=== PATIENT | male | born 1955 | race Hispanic/Latino ===

== ENCOUNTER 2019-03-07 14:39 | Inpatient (IN) | payer MEDICARE ==
[~2019-03-07] VITALS: Ht 165.1 cm; Wt 69.5 kg
[2019-03-07] MEDS ORDERED: ZIPRASIDONE MESYLATE 20 MG/VIAL IM ONE (14:40)
[2019-03-07 15:22] LABS: APPEARANCE,URINE Clear (CLEAR); BILIRUBIN,URINE Negative (NEGATIVE); COLOR,URINE Yellow (YELLOW); GLUCOSE, URINE (UA) Negative (NEGATIVE); KETONES,URINE Negative (NEGATIVE); LEUKOCYTE ESTERASE ,URINE Negative (NEGATIVE); NITRATE,URINE Negative (NEGATIVE); OCCULT BLOOD,URINE Moderate (NEGATIVE); PROTEIN,URINE Trace mg/dL (NEGATIVE); UROBILINOGEN,URINE 0.2 mg/dL (0.2-1.0)
[2019-03-07] MEDS ORDERED: HALOPERIDOL LACTATE 5 MG/ML VIAL ONE (15:25)
[2019-03-07 15:26] LABS: BASOPHILS % (AUTO) 0.6 % (0.0-5.0); EOSINOPHILS % (AUTO) 0.2 % (0.0-8.0); HEMATOCRIT 46.5 % (42-54); LYMPHOCYTES % (AUTO) 15.7 % (21.0-51.0); MEAN CORPUSCULAR HEMOGLOBIN 32.6 pg (27.0-33.0); MEAN CORPUSCULAR HGB CONC 34.8 g/dL (32.0-36.0); MEAN CORPUSCULAR VOLUME 93.6 fL (79-99); NEUTROPHILS % (AUTO) 76.5 % (40.0-77.0); PLATELET COUNT (AUTO) 218 K/uL (130-400); RED BLOOD CELL COUNT(AUTO) 4.96 MIL/uL (4.50-6.20); RED CELL DISTRIBUTION WIDTH 13.5 % (11.0-15.5); WHITE BLOOD COUNT (AUTO) 12.8 K/uL (4.8-10.8)
[2019-03-07] MEDS ORDERED: SODIUM CHLORIDE 0.9% 1000ML 2,000 ML IV ONE (15:26)
[2019-03-07] MEDS ORDERED: LORAZEPAM 2 MG/ML 1 ML VIAL ONE ×2 (15:26→21:21)
[2019-03-07 15:29] LABS: AMPHET/METH SCREEN,URINE NEGATIVE (NEGATIVE); BARBITURATE SCREEN, URINE NEGATIVE (NEGATIVE); BENZODIAZEPINES SCREEN,URINE NEGATIVE (NEGATIVE); CANNABINOID SCREEN,URINE NEGATIVE (NEGATIVE); COCAINE SCREEN,URINE NEGATIVE (NEGATIVE); OPIATE SCREEN,URINE NEGATIVE (NEGATIVE); PHENCYCLIDINE SCREEN,URINE NEGATIVE (NEGATIVE)
[2019-03-07 15:37] LABS: POTASSIUM 4.6 mmol/L (3.5-5.1)
[2019-03-07 15:42] LABS: ALBUMIN 4.1 g/dL (3.5-5.0); BILIRUBIN,TOTAL 0.6 mg/dL (0.2-1.0); TOTAL PROTEIN, SERUM 7.4 g/dL (6.0-8.3)
[2019-03-07 16:14] LABS: BACTERIA,URINE Rare /HPF (None Seen); WBC,URINE 0-1 /HPF (0-1)
[2019-03-07 16:15] LABS: SQUAMOUS EPITHELIAL CELL,UR None Seen /HPF (0-2)
[2019-03-07] MEDS: SODIUM CHLORIDE 0.9% 1000ML 1,000 ML IV SCH (19:10)
[2019-03-07] MEDS ORDERED: PROMETHAZINE HCL 25 MG TABLET PO PRN (19:15)
[2019-03-07] MEDS ORDERED: CHLORDIAZEPOXIDE HCL 25 MG CAP PO PRN ×2 (19:15)
[2019-03-07] MEDS ORDERED: LORAZEPAM 2 MG/ML 1 ML VIAL IVP PRN ×2 (19:15)
[2019-03-07] MEDS: CEFTRIAXONE SODIUM 1 GM IV SCH (19:15)
[2019-03-07] MEDS ORDERED: PHARMACY COMMUNICATION MISC PRN (19:15)
[2019-03-07] MEDS ORDERED: HYDRALAZINE HCL 20 MG/ML VIAL IV PRN (19:15)
[2019-03-07] MEDS ORDERED: THIAMINE HCL 100 MG, FOLIC ACID 1 MG, M.V.I. IV [ADULT] 10 ML in SODIUM CHLORIDE 0.9% 1... IV SCH (19:15)
[2019-03-07 20:06] LABS: MAGNESIUM 2.1 mg/dL (1.80-2.40)
[2019-03-07] MEDS ORDERED: FAMOTIDINE/PF 20 MG/2 ML VIAL IV SCH ×2 (21:00)
[2019-03-07] MEDS ORDERED: CEFTRIAXONE SODIUM 1 GM ONE (21:21)
[2019-03-08] MEDS ORDERED: SODIUM CHLORIDE 0.9% 1000ML 1,000 ML IV ONE ×2 (02:49→09:18)
[2019-03-08] MEDS ORDERED: LORAZEPAM 2 MG/ML 1 ML VIAL ONE (04:13)
[2019-03-08] MEDS: SODIUM CHLORIDE 0.9% 1000ML 1,000 ML IV SCH ×2 (05:10→16:28)
[2019-03-08 06:09] LABS: BASOPHILS % (AUTO) 0.7 % (0.0-5.0); EOSINOPHILS % (AUTO) 1.2 % (0.0-8.0); HEMATOCRIT 44.2 % (42-54); LYMPHOCYTES % (AUTO) 13.6 % (21.0-51.0); MEAN CORPUSCULAR HEMOGLOBIN 32.4 pg (27.0-33.0); MEAN CORPUSCULAR HGB CONC 34.6 g/dL (32.0-36.0); MEAN CORPUSCULAR VOLUME 93.6 fL (79-99); MONOCYTES % (AUTO) 6.5 % (3.0-13.0); PLATELET COUNT (AUTO) 187 K/uL (130-400); RED BLOOD CELL COUNT(AUTO) 4.71 MIL/uL (4.50-6.20); RED CELL DISTRIBUTION WIDTH 13.9 % (11.0-15.5); WHITE BLOOD COUNT (AUTO) 10.9 K/uL (4.8-10.8)
[2019-03-08 06:27] LABS: ALBUMIN 3.3 g/dL (3.5-5.0); BILIRUBIN,TOTAL 0.8 mg/dL (0.2-1.0); CREATININE 0.7 mg/dL (0.5-1.5); POTASSIUM 4.8 mmol/L (3.5-5.1); TOTAL PROTEIN, SERUM 6.8 g/dL (6.0-8.3)
[2019-03-08] MEDS: ENOXAPARIN SODIUM 30 MG/0.3 ML SQ SCH (09:00)
[2019-03-08] MEDS ORDERED: CHLORDIAZEPOXIDE HCL 25 MG CAP ONE (09:24)
[2019-03-08] MEDS: FAMOTIDINE 20MG TAB 20 MG TAB PO SCH ×2 (10:41→21:25)
[2019-03-08] MEDS: NICOTINE 21 MG/ 24 HR PATCH TD SCH (10:43)
[2019-03-08] MEDS: THIAMINE HCL 100 MG, FOLIC ACID 1 MG, M.V.I. IV [ADULT] 10 ML in SODIUM CHLORIDE 0.9% 1... IV SCH (10:45)
[2019-03-08] MEDS ORDERED: ENOXAPARIN SODIUM 30 MG/0.3 ML SQ ONE (10:56)
[2019-03-08] MEDS ORDERED: FAMOTIDINE 20MG TAB 20 MG TAB ONE (10:56)
[2019-03-08 12:30] VITALS: BP 142/83
[2019-03-08] MEDS ORDERED: CHLORDIAZEPOXIDE HCL 25 MG CAP PO SCH (14:00)
--- NOTE | 2019-03-08 14:54 | NUR ---
ALCOHOL ABUSE AND SUICIDE IDEATIONS Sw met with pt who was restless and somewhat confused. Pt asking to eat, stats he is hungry. Pt admits to alcohol abuse and states he was in rehab many years ago (15-20 years ago). Pt states he recently started drinking again because he has been very sad. pt denies current suicidal thoughts and states he does not remember making such comments. Sw provided pt with local substance abuse resource list to review when he is more alert and able to understand.
--- NOTE | 2019-03-08 15:30 | NUR ---
PENDING SW TO SEE. WILL REVIEW NOTES PRIOR TO INITIAL ASSESSMENT Addendum: 03/11/19 at 0824 by ADEBAYO RUBIN RN CM Amended: Links added.
[2019-03-08 16:00] VITALS: BP 162/86
--- NOTE | 2019-03-08 16:01 | NUR ---
NURSING NOTE Received patient from ER at 12:15hrs via wheelchair. Patient is alert, oriented to name, place, easily reoriented to date (knows month and year). He initially came alone but his sister Gin Alford joined him in the room afterwards. Patient stated he does not have any medical history. Sister stated she is not very well aware of the patient's medical history other than he is a heavy smoker and a heavy drinker and that he has been drinking for the past week and a half. Patient states he sometimes has up to 20 drinks a day. Orientation and admission done. Patient is on a 1:1 with sitter at bedside because he stated suicidal thoughts upon arrival to the ER. He does not have his medications with him and sister does not know what medications he has. Sister states she was living in [place] and patient in [place] for decades and now both are here in the [place] but patient does not have a direct support system. Patient is cooperative towards care but does have to be redirected sometimes. He is able to ambulate but is unsteady and need 1:1 assistance. He was defecating in bed and cleanig himself. He had to be redirected to calling for help and using restroom to do his physiological needs. Patient is easily redireted to care. He is not combative, nor aggressive. He is restless at times but is easily redirected to relax. He arrived receiving NS at 100mL/hr and a banana beg also at 100mL/hr. Has received his 1400 dose of librium 50mg PO. He took it without any problem. He sat in chair for a while and now back in bed.
--- NOTE | 2019-03-08 16:20 | NUR ---
URINE CULTURE Confirmed with laboratory that an urine culture was collected and sent on 03/07 at 1520 hours.
[2019-03-08 21:11] VITALS: BP 133/86
[2019-03-08] MEDS: CHLORDIAZEPOXIDE HCL 25 MG CAP PO SCH (21:25)
[2019-03-08] MEDS: CEFTRIAXONE SODIUM 1 GM IV SCH (21:26)
[2019-03-09] VITALS: BP 149/77
[2019-03-09] MEDS: SODIUM CHLORIDE 0.9% 1000ML 1,000 ML IV SCH ×3 (03:10→17:22)
[2019-03-09 03:53] VITALS: BP 148/79
[2019-03-09 04:19] LABS: BASOPHILS % (AUTO) 0.8 % (0.0-5.0); EOSINOPHILS % (AUTO) 3.5 % (0.0-8.0); HEMATOCRIT 41.4 % (42-54); LYMPHOCYTES % (AUTO) 18.2 % (21.0-51.0); MEAN CORPUSCULAR HEMOGLOBIN 32.7 pg (27.0-33.0); MEAN CORPUSCULAR VOLUME 93.3 fL (79-99); MONOCYTES % (AUTO) 7.9 % (3.0-13.0); NEUTROPHILS % (AUTO) 69.6 % (40.0-77.0); PLATELET COUNT (AUTO) 155 K/uL (130-400); RED BLOOD CELL COUNT(AUTO) 4.44 MIL/uL (4.50-6.20); RED CELL DISTRIBUTION WIDTH 13.7 % (11.0-15.5); WHITE BLOOD COUNT (AUTO) 8.1 K/uL (4.8-10.8)
[2019-03-09 04:59] LABS: BILIRUBIN,TOTAL 0.9 mg/dL (0.2-1.0); CREATININE 0.8 mg/dL (0.5-1.5); POTASSIUM 3.7 mmol/L (3.5-5.1); TOTAL PROTEIN, SERUM 6.2 g/dL (6.0-8.3)
[2019-03-09 08:00] VITALS: BP 174/97
--- NOTE | 2019-03-09 08:04 | NUR ---
PATIENT UPDATE Pt oriented to person and place, requested for a cpap mask last night because apparently he's got problems with obstructive sleep apnea and uses one at home. Was given a cpap mask by RT but kept it only for 30 minutes, stated that it's not working. CIWA score at 10 last night, was given 25 mg of librium. Kept on suicidal precaution, hasn't verbalized any need to hurt himself. Admits to being a chronic alcoholic before, tried to quit but continues to drink. NS at 100 cc/hr, NSR in the 70's to 80's, no ectopies noted, no complaints of chest pain.
[2019-03-09] MEDS: THIAMINE HCL 100 MG, FOLIC ACID 1 MG, M.V.I. IV [ADULT] 10 ML in SODIUM CHLORIDE 0.9% 1... IV SCH (10:45)
[2019-03-09] MEDS: NICOTINE 21 MG/ 24 HR PATCH TD SCH (11:07)
[2019-03-09] MEDS: CHLORDIAZEPOXIDE HCL 25 MG CAP PO SCH ×3 (11:07→21:57)
[2019-03-09] MEDS: FAMOTIDINE 20MG TAB 20 MG TAB PO SCH ×2 (11:07→21:57)
[2019-03-09] MEDS: ENOXAPARIN SODIUM 30 MG/0.3 ML SQ SCH (11:08)
[2019-03-09 12:22] VITALS: BP 154/85
[2019-03-09 16:06] VITALS: BP 163/92
[2019-03-09 20:10] VITALS: BP 151/72
[2019-03-09] MEDS: CEFTRIAXONE SODIUM 1 GM IV SCH (22:32)
[2019-03-10 00:16] VITALS: BP 158/92
[2019-03-10] MEDS: SODIUM CHLORIDE 0.9% 1000ML 1,000 ML IV SCH ×2 (03:46→20:19)
[2019-03-10 04:24] VITALS: BP 159/87
[2019-03-10] MEDS: ACETAMINOPHEN EXTRA STRENGTH 500 MG TABLET PO PRN ×2 (05:55→20:28)
[2019-03-10 06:19] LABS: BASOPHILS % (AUTO) 1.6 % (0.0-5.0); EOSINOPHILS % (AUTO) 6.2 % (0.0-8.0); HEMATOCRIT 42.9 % (42-54); LYMPHOCYTES % (AUTO) 28.2 % (21.0-51.0); MEAN CORPUSCULAR HEMOGLOBIN 32.7 pg (27.0-33.0); MEAN CORPUSCULAR HGB CONC 34.9 g/dL (32.0-36.0); MEAN CORPUSCULAR VOLUME 93.7 fL (79-99); MONOCYTES % (AUTO) 7.7 % (3.0-13.0); NEUTROPHILS % (AUTO) 56.3 % (40.0-77.0); PLATELET COUNT (AUTO) 150 K/uL (130-400); RED BLOOD CELL COUNT(AUTO) 4.58 MIL/uL (4.50-6.20); RED CELL DISTRIBUTION WIDTH 13.7 % (11.0-15.5); WHITE BLOOD COUNT (AUTO) 5.8 K/uL (4.8-10.8)
[2019-03-10 06:44] LABS: ALBUMIN 3.3 g/dL (3.5-5.0); BILIRUBIN,TOTAL 0.5 mg/dL (0.2-1.0); CREATININE 0.7 mg/dL (0.5-1.5); TOTAL PROTEIN, SERUM 6.8 g/dL (6.0-8.3)
[2019-03-10 08:00] VITALS: BP 158/95
[2019-03-10] MEDS: ENOXAPARIN SODIUM 30 MG/0.3 ML SQ SCH (10:22)
[2019-03-10] MEDS: CHLORDIAZEPOXIDE HCL 25 MG CAP PO SCH ×3 (10:22→20:10)
[2019-03-10] MEDS: FAMOTIDINE 20MG TAB 20 MG TAB PO SCH ×2 (10:22→20:10)
[2019-03-10] MEDS: NICOTINE 21 MG/ 24 HR PATCH TD SCH (10:23)
[2019-03-10 11:00] VITALS: BP 150/91
[2019-03-10] MEDS ORDERED: FOLIC ACID/VITAMIN B COMP W-C 1 MG CAP/TAB PO SCH (13:00)
[2019-03-10 16:00] VITALS: BP 156/78
[2019-03-10 20:00] VITALS: BP 142/81
[2019-03-10] MEDS: CEFTRIAXONE SODIUM 1 GM IV SCH (20:10)
--- NOTE | 2019-03-10 20:23 | NUR ---
[facility] [place] Spoke to Crisis Line. Stated order needs to read "Medically Clear Ready For Discharge".
[2019-03-11] VITALS: BP 133/72
--- NOTE | 2019-03-11 02:28 | NUR ---
DENIES Pt on suicidal watch,denies suicidal ideation this time.
[2019-03-11 04:00] VITALS: BP 135/78
[2019-03-11] MEDS: SODIUM CHLORIDE 0.9% 1000ML 1,000 ML IV SCH (04:25)
[2019-03-11] MEDS: ACETAMINOPHEN EXTRA STRENGTH 500 MG TABLET PO PRN (05:00)
[2019-03-11 05:07] LABS: BASOPHILS % (AUTO) 0.8 % (0.0-5.0); EOSINOPHILS % (AUTO) 6.6 % (0.0-8.0); HEMATOCRIT 43.7 % (42-54); LYMPHOCYTES % (AUTO) 28.9 % (21.0-51.0); MEAN CORPUSCULAR HEMOGLOBIN 33.1 pg (27.0-33.0); MEAN CORPUSCULAR HGB CONC 34.7 g/dL (32.0-36.0); MEAN CORPUSCULAR VOLUME 95.5 fL (79-99); MONOCYTES % (AUTO) 7.3 % (3.0-13.0); NEUTROPHILS % (AUTO) 56.4 % (40.0-77.0); NUCLEATED RED BLOOD CELLS 0.1 % (0.0-0.19); PLATELET COUNT (AUTO) 151 K/uL (130-400); RED BLOOD CELL COUNT(AUTO) 4.58 MIL/uL (4.50-6.20); WHITE BLOOD COUNT (AUTO) 7.1 K/uL (4.8-10.8)
[2019-03-11 05:23] LABS: ALBUMIN 3.1 g/dL (3.5-5.0); BILIRUBIN,TOTAL 0.5 mg/dL (0.2-1.0); CREATININE 0.8 mg/dL (0.5-1.5); POTASSIUM 4.6 mmol/L (3.5-5.1); TOTAL PROTEIN, SERUM 6.7 g/dL (6.0-8.3)
--- NOTE | 2019-03-11 08:00 | NUR ---
TELEMETRY SB WITH 1ST DEGREE AV BLOCK TELEMETRY CALLED TO INFORM US PATIENT IS SINUS BRIDGET 59 WITH 1ST DEGREE AV BLOCK. PATIENT WAS CURRENTLY SLEEPING BUT EASILY AWAKENED TO VERBAL STIMULI. DENIES FEELING CHESTPAIN, LIGHTHEADEDNESS, FOR SOB. NO SIGNS OF DISTRESS NOTED. SEE PATIENT CHART ON PREVIOUS EKG FROM 03/08/19 PATIENT HAD BEEN SB WITH 1ST DEGREE AV BLOCK AND PREVIOUS TO THAT ALSO NOTED WAS RIGHT BUNDLE BRANCH BLOCK. FRANCES SOOD NP MADE AWARE.
[2019-03-11] MEDS ORDERED: FOLIC ACID/VITAMIN B COMP W-C 1 MG CAP/TAB PO SCH (09:00)
[2019-03-11] MEDS: FAMOTIDINE 20MG TAB 20 MG TAB PO SCH (09:11)
[2019-03-11] MEDS: CHLORDIAZEPOXIDE HCL 25 MG CAP PO SCH ×2 (09:11→13:31)
[2019-03-11] MEDS: ENOXAPARIN SODIUM 30 MG/0.3 ML SQ SCH (09:12)
[2019-03-11] MEDS: NICOTINE 21 MG/ 24 HR PATCH TD SCH (09:12)
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
[2019-03-11 12:00] VITALS: BP 160/77
--- NOTE | 2019-03-11 12:33 | NUR ---
[facility] SCREENER CALLED PATIENT IS MEDICALLY CLEARED FOR DISCHARGE. [facility] HOTLINE CALLED, SCREENER WILL CALL BACK.
[2019-03-11 12:49] VITALS: BP 130/74
[2019-03-11 17:58] VITALS: BP 134/75
== END 2019-03-11 19:15 | disposition home or self-care (01) | DRG 896 ==
LOC: EDH 14:39 → EDHIP 19:10 → 3DH 03-08 12:26
PROVIDERS: ADMIT Internal Medicine; ATTEND Internal Medicine
DX: F10.229 Alcohol dependence with intoxication, unspecified (principal); G93.41 Metabolic encephalopathy; R45.851 Suicidal ideations; M62.82 Rhabdomyolysis; F10.239 Alcohol dependence with withdrawal, unspecified; I45.10 Unspecified right bundle-branch block; Y90.8 Blood alcohol level of 240 mg/100 ml or more; I44.30 Unspecified atrioventricular block
CPT/HCPCS: 36415; 71045; 80053; 80305; 81001; 82550; 83735; 83880; 84100; 84484; 85025; 87088; 93005; 94660; G0378; G0480; J0360; J0696; J1630; J1650; J2060; J3411; J3486; J3490; J7030

== ENCOUNTER 2019-10-18 21:28 | Inpatient (IN) | payer MEDICARE, OTHER ==
[~2019-10-18] VITALS: Ht 165.1 cm; Wt 109.2 kg
[2019-10-18] MEDS ORDERED: LORAZEPAM 2 MG/ML 1 ML VIAL ONE (21:43)
[2019-10-18 22:03] LABS: BASOPHILS % (AUTO) 0.2 % (0.0-5.0); EOSINOPHILS % (AUTO) 0.1 % (0.0-8.0); HEMATOCRIT 41.2 % (42-54); LYMPHOCYTES % (AUTO) 12.5 % (21.0-51.0); MEAN CORPUSCULAR HEMOGLOBIN 30.8 pg (27.0-33.0); MEAN CORPUSCULAR HGB CONC 34.7 g/dL (32.0-36.0); MEAN CORPUSCULAR VOLUME 88.8 fL (79-99); NEUTROPHILS % (AUTO) 75.8 % (40.0-77.0); PLATELET COUNT (AUTO) 227 K/uL (130-400); RED BLOOD CELL COUNT(AUTO) 4.64 MIL/uL (4.50-6.20); RED CELL DISTRIBUTION WIDTH 12.9 % (11.0-15.5); WHITE BLOOD COUNT (AUTO) 17.2 K/uL (4.8-10.8)
[2019-10-18 22:21] LABS: CREATININE 1.3 mg/dL (0.5-1.5); POTASSIUM 4.4 mmol/L (3.5-5.1)
[2019-10-18 22:35] LABS: ALBUMIN 3.8 g/dL (3.5-5.0); BILIRUBIN,TOTAL 1.2 mg/dL (0.2-1.0); TOTAL PROTEIN, SERUM 7.2 g/dL (6.0-8.3)
[2019-10-18] MEDS ORDERED: ALBUTEROL SULFATE 0.083% 2.5 MG/3 ML INH IH ONE (22:41)
[2019-10-18 22:53] LABS: INR 1.01 (0.85-1.15); PARTIAL THROMBOPLASTIN TIME 30.6 SEC (26.3-35.5); PROTHROMBIN TIME 10.9 SEC (9.6-11.6)
[2019-10-18 22:57] LABS: ABG BASE EXCESS -4.5 mmol/L (-2.0-3.0); ABG HCO3 19.9 mmol/L (21.0-28.0); ABG OXYGEN SATURATION 96.3 % (95.0-99.0); ABG PCO2 35 mmHg (35-48)
[2019-10-18] MEDS ORDERED: THIAMINE HCL 100 MG/ML 2ML VIAL ONE ×2 (23:10→23:58)
[2019-10-18] MEDS ORDERED: LEVOFLOXACIN 750 MG/D5W 150 ML 150 ML ONE (23:10)
[2019-10-18] MEDS ORDERED: M.V.I. IV [ADULT] 10 ML VIAL IV ONE (23:58)
[2019-10-18] MEDS ORDERED: FOLIC ACID 5 MG/ML 10 ML VIAL ONE (23:59)
[2019-10-19] VITALS (7 sets, daily range): BP systolic 112–153; BP diastolic 73–91
[2019-10-19 00:12] LABS: AMPHET/METH SCREEN,URINE NEGATIVE (NEGATIVE); BARBITURATE SCREEN, URINE NEGATIVE (NEGATIVE); BENZODIAZEPINES SCREEN,URINE NEGATIVE (NEGATIVE); CANNABINOID SCREEN,URINE NEGATIVE (NEGATIVE); COCAINE SCREEN,URINE POSITIVE (NEGATIVE); OPIATE SCREEN,URINE NEGATIVE (NEGATIVE); PHENCYCLIDINE SCREEN,URINE NEGATIVE (NEGATIVE)
[2019-10-19] MEDS ORDERED: IOHEXOL-350 75 ML VIAL IV ONE (00:58)
[2019-10-19] MEDS ORDERED: MORPHINE SULFATE 2 MG/ML 1ML SYG IVP PRN (03:00)
[2019-10-19] MEDS: AZITHROMYCIN 500MG+NS 250ML 250 ML IV SCH (03:00)
[2019-10-19] MEDS: SODIUM CHLORIDE 0.9% 1000ML 1,000 ML IV SCH ×5 (03:00→22:16)
[2019-10-19] MEDS: CEFTRIAXONE SODIUM 1 GM IVP SCH ×2 (03:00→14:05)
[2019-10-19] MEDS ORDERED: NITROGLYCERIN 1GM/1 INCH PACKET TD SCH (03:00)
[2019-10-19] MEDS ORDERED: AZITHROMYCIN 500MG+NS 250ML 250 ML IV ONE (03:32)
[2019-10-19] MEDS ORDERED: CEFTRIAXONE SODIUM 1 GM ONE (03:32)
[2019-10-19] MEDS ORDERED: ALBUTEROL INHALER 90MCG/INH IH ONE (03:32)
[2019-10-19 04:20] LABS: APPEARANCE,URINE Clear (CLEAR); BILIRUBIN,URINE Negative (NEGATIVE); COLOR,URINE Yellow (YELLOW); GLUCOSE, URINE (UA) Negative (NEGATIVE); KETONES,URINE Trace mg/dL (NEGATIVE); LEUKOCYTE ESTERASE ,URINE Negative (NEGATIVE); NITRATE,URINE Negative (NEGATIVE); OCCULT BLOOD,URINE Moderate (NEGATIVE); PROTEIN,URINE POS 1+ mg/dL (NEGATIVE)
[2019-10-19 04:31] LABS: BACTERIA,URINE None Seen /HPF (None Seen); MUCUS,URINE Moderate LPF (None Seen); SQUAMOUS EPITHELIAL CELL,UR Moderate /HPF (0-2); WBC,URINE None Seen /HPF (0-1)
[2019-10-19 05:21] LABS: BASOPHILS % (AUTO) 0.3 % (0.0-5.0); EOSINOPHILS % (AUTO) 0.3 % (0.0-8.0); HEMATOCRIT 39.1 % (42-54); LYMPHOCYTES % (AUTO) 10.9 % (21.0-51.0); MEAN CORPUSCULAR HEMOGLOBIN 31.2 pg (27.0-33.0); MEAN CORPUSCULAR VOLUME 89.1 fL (79-99); MONOCYTES % (AUTO) 10.4 % (3.0-13.0); NEUTROPHILS % (AUTO) 77.8 % (40.0-77.0); PLATELET COUNT (AUTO) 191 K/uL (130-400); RED BLOOD CELL COUNT(AUTO) 4.39 MIL/uL (4.50-6.20); WHITE BLOOD COUNT (AUTO) 11.8 K/uL (4.8-10.8)
[2019-10-19 06:14] LABS: ALBUMIN 3.3 g/dL (3.5-5.0); BILIRUBIN,DIRECT 0.4 mg/dL (0.0-0.3); BILIRUBIN,TOTAL 1.2 mg/dL (0.2-1.0); CREATININE 0.9 mg/dL (0.5-1.5); CRP QUANTITATIVE 145.7 mg/L (0.00-9.0); POTASSIUM 4.4 mmol/L (3.5-5.1); TOTAL PROTEIN, SERUM 6.6 g/dL (6.0-8.3); TROPONIN I 0.17 ng/mL (0.00-0.06)
[2019-10-19] MEDS: FAMOTIDINE/PF 20 MG/2 ML VIAL IV SCH ×2 (08:56→19:34)
[2019-10-19] MEDS: ENOXAPARIN SODIUM 120 MG/0.8ML SQ SCH (08:56)
[2019-10-19] MEDS: ASPIRIN 81 MG EC TAB PO SCH (08:56)
[2019-10-19] MEDS: M.V.I. IV [ADULT] 10 ML, FOLIC ACID 1 MG, THIAMINE HCL 100 MG in SODIUM CHLORIDE 0.9% 1... IV SCH (08:59)
[2019-10-19] MEDS ORDERED: ENOXAPARIN SODIUM 1 MG/KG SQ SCH (09:00)
[2019-10-19] MEDS ORDERED: ALBUTEROL SULFATE 0.083% 2.5 MG/3 ML INH IH SCH (10:00)
[2019-10-19] MEDS: NITROGLYCERIN 1GM/1 INCH PACKET TD SCH ×2 (14:05→22:17)
--- NOTE | 2019-10-19 14:32 | NUR ---
DR. Lauren LAWSON IN ROOM ASSESSING/SPEAKING WITH PT. RE:PLAN OF CARE. QUESTIONS ANSWERED BY DR. LAWSON.
--- NOTE | 2019-10-19 16:10 | NUR ---
SPOKE WITH Zayra CASTILLO PA-C RE:CARDIOLOGY CONSULT. INFORMATION PROVIDED AND QUESTIONS ANSWERED, VERBALIZED UNDERSTANDING. NO NEW ORDERS RECEIVED AT THIS TIME.
[2019-10-19] MEDS ORDERED: ALBUTEROL SULFATE 0.083% 2.5 MG/3 ML INH IH PRN (16:15)
--- NOTE | 2019-10-19 17:31 | NUR ---
CM NOTE SW attempted to contact patient's sibling, Gin Cruz, to complete initial assessment but number was disconnected. SW will continue to follow up as needed.
[2019-10-19] MEDS ORDERED: ALBUTEROL INHALER 90MCG/INH IH PRN (19:00)
[2019-10-19] MEDS: ZOLPIDEM TARTRATE 5 MG TAB PO PRN (19:34)
--- NOTE | 2019-10-19 23:10 | NUR ---
GAVE REPORT TO CYNTHIA MODI FOR TRANSFER ROOM 420
--- NOTE | 2019-10-19 23:25 | NUR ---
TRANSFER KIMBERLY ALFORD TRANSFERRED PT VIA WHEELCHAIR TO ROOM 420. PT AAOx3. FLUIDS NS AT 125ML ON 20G RAC. DENIES PAIN. COVID RESULTS NEGATIVE ON 10/18 AT 1308. PCR NEGATIVE RESULTS CALLED BY [facility] AT 2305 10/18.
--- NOTE | 2019-10-19 23:36 | NUR ---
TRANSFER from 220: Arrived to floor from 220 via wheelchair fully awake and responsive. No complaints of pain. Transferred with personal belongings. Continue plan of care. No unusualities or untoward incident happened.
[2019-10-20] VITALS (7 sets, daily range): BP systolic 101–161; BP diastolic 50–91
[2019-10-20] MEDS: AZITHROMYCIN 500MG+NS 250ML 250 ML IV SCH (03:25)
[2019-10-20] MEDS: CEFTRIAXONE SODIUM 1 GM IVP SCH ×2 (03:25→15:32)
[2019-10-20] MEDS: ONDANSETRON HCL 4 MG/2 ML VIAL IV PRN (03:50)
[2019-10-20 04:34] LABS: BASOPHILS % (AUTO) 0.6 % (0.0-5.0); EOSINOPHILS % (AUTO) 1.8 % (0.0-8.0); HEMATOCRIT 39.7 % (42-54); LYMPHOCYTES % (AUTO) 18.6 % (21.0-51.0); MEAN CORPUSCULAR VOLUME 91.3 fL (79-99); MONOCYTES % (AUTO) 10.1 % (3.0-13.0); NEUTROPHILS % (AUTO) 68.7 % (40.0-77.0); PLATELET COUNT (AUTO) 188 K/uL (130-400); RED BLOOD CELL COUNT(AUTO) 4.35 MIL/uL (4.50-6.20); RED CELL DISTRIBUTION WIDTH 13.3 % (11.0-15.5); WHITE BLOOD COUNT (AUTO) 8.8 K/uL (4.8-10.8)
[2019-10-20 04:59] LABS: ALBUMIN 3.1 g/dL (3.5-5.0); BILIRUBIN,TOTAL 0.5 mg/dL (0.2-1.0); CREATININE 0.8 mg/dL (0.5-1.5); POTASSIUM 4.3 mmol/L (3.5-5.1); TOTAL PROTEIN, SERUM 6.5 g/dL (6.0-8.3)
[2019-10-20] MEDS: NITROGLYCERIN 1GM/1 INCH PACKET TD SCH (06:47)
[2019-10-20] MEDS: ASPIRIN 81 MG EC TAB PO SCH (08:30)
[2019-10-20] MEDS: ENOXAPARIN SODIUM 120 MG/0.8ML SQ SCH (08:30)
[2019-10-20] MEDS ORDERED: CHLORDIAZEPOXIDE HCL 25 MG CAP PO PRN (09:00)
[2019-10-20] MEDS ORDERED: LORAZEPAM 2 MG/ML 1 ML VIAL IVP PRN (09:00)
[2019-10-20] MEDS ORDERED: PHARMACY COMMUNICATION MISC PRN (09:00)
[2019-10-20] MEDS: FAMOTIDINE/PF 20 MG/2 ML VIAL IV SCH ×2 (09:24→20:46)
[2019-10-20] MEDS: FOLIC ACID 1 MG TABLET PO SCH (09:24)
[2019-10-20] MEDS: THIAMINE HCL 100 MG/ML 2ML VIAL IM SCH (09:25)
[2019-10-20] MEDS: MULTIVITAMIN TABLET PO SCH (09:26)
[2019-10-20] MEDS: CHLORDIAZEPOXIDE HCL 25 MG CAP PO PRN (09:27)
[2019-10-20] MEDS: LORAZEPAM 2 MG/ML 1 ML VIAL IVP PRN ×2 (09:58→15:33)
--- NOTE | 2019-10-20 10:16 | NUR ---
WAS VERY AGITATED, SHAKING, SCREAMING "I CAN'T CALM DOWN, PLEASE HELP ME CALM DOWN: HAD RECEIVED AM MEDS. DR. STONER MAKING ROUNDS, NEW ORDERS RECEIVED. 2MG ATIVAN IVP GIVEN. CALM AT THIS TIME.
--- NOTE | 2019-10-20 10:54 | NUR ---
SLEEPING. IN NO APPARENT DISTRESS, NO SIGN OF AGITATION OR DISCOMFORT. V/S WNL.
[2019-10-20] MEDS: SODIUM CHLORIDE 0.9% 1000ML 1,000 ML IV SCH ×2 (11:19→19:00)
[2019-10-20] MEDS: M.V.I. IV [ADULT] 10 ML, FOLIC ACID 1 MG, THIAMINE HCL 100 MG in SODIUM CHLORIDE 0.9% 1... IV SCH (11:41)
--- NOTE | 2019-10-20 15:42 | NUR ---
NOTED FIDGETTY, AND RESTLESS. REPORTS "I AM STARTING TO FEEL BAD AGAIN" DR. ERVIN IN TO SEE Pt. 2MG ATIVAN IVP GIVEN PER ORDER. WILL CONTINUE TO MONITOR. ALSO SEEN BY DR. LAWSON. NO NEW ORDERS RECEIVED AT THIS TIME.
--- NOTE | 2019-10-20 17:19 | NUR ---
cm note met with patient and states lives with sister, independent with adls and ambulation, no provider, no services. pt drives. dc plan is back to home at time of dc. Addendum: 10/20/19 at 1726 by RAZ REINA CM Amended: Links added.
[2019-10-20] MEDS: ZOLPIDEM TARTRATE 5 MG TAB PO PRN (22:26)
[2019-10-21] MEDS: AZITHROMYCIN 500MG+NS 250ML 250 ML IV SCH (02:49)
[2019-10-21] MEDS: CEFTRIAXONE SODIUM 1 GM IVP SCH ×2 (02:49→15:09)
[2019-10-21] MEDS: SODIUM CHLORIDE 0.9% 1000ML 1,000 ML IV SCH ×3 (02:57→21:46)
[2019-10-21 03:00] VITALS: BP 142/86
[2019-10-21 04:49] LABS: BASOPHILS % (AUTO) 0.4 % (0.0-5.0); EOSINOPHILS % (AUTO) 3.7 % (0.0-8.0); HEMATOCRIT 38.7 % (42-54); LYMPHOCYTES % (AUTO) 23.1 % (21.0-51.0); MEAN CORPUSCULAR HEMOGLOBIN 31.5 pg (27.0-33.0); MEAN CORPUSCULAR HGB CONC 34.1 g/dL (32.0-36.0); MEAN CORPUSCULAR VOLUME 92.4 fL (79-99); MONOCYTES % (AUTO) 9.8 % (3.0-13.0); NEUTROPHILS % (AUTO) 62.7 % (40.0-77.0); PLATELET COUNT (AUTO) 213 K/uL (130-400); RED BLOOD CELL COUNT(AUTO) 4.19 MIL/uL (4.50-6.20); RED CELL DISTRIBUTION WIDTH 13.2 % (11.0-15.5)
[2019-10-21 05:12] LABS: BILIRUBIN,TOTAL 0.3 mg/dL (0.2-1.0); CREATININE 0.8 mg/dL (0.5-1.5); POTASSIUM 4.2 mmol/L (3.5-5.1); TOTAL PROTEIN, SERUM 6.4 g/dL (6.0-8.3)
[2019-10-21] MEDS: LORAZEPAM 2 MG/ML 1 ML VIAL IVP PRN (05:26)
[2019-10-21 08:12] VITALS: BP 138/81
[2019-10-21] MEDS: MULTIVITAMIN TABLET PO SCH (09:08)
[2019-10-21] MEDS: FOLIC ACID 1 MG TABLET PO SCH (09:09)
[2019-10-21] MEDS: ASPIRIN 81 MG EC TAB PO SCH (09:09)
[2019-10-21] MEDS: THIAMINE HCL 100 MG/ML 2ML VIAL IM SCH (09:09)
[2019-10-21] MEDS: FAMOTIDINE/PF 20 MG/2 ML VIAL IV SCH ×2 (09:18→21:46)
[2019-10-21] MEDS: ENOXAPARIN SODIUM 40 MG/0.4 ML SYRINGE SQ SCH (09:20)
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
[2019-10-21 11:45] VITALS: BP 159/86
[2019-10-21] MEDS: LISINOPRIL 10 MG TABLET PO SCH ×2 (13:04→21:46)
[2019-10-21] MEDS: CHLORDIAZEPOXIDE HCL 25 MG CAP PO PRN (15:05)
[2019-10-21] MEDS: M.V.I. IV [ADULT] 10 ML, FOLIC ACID 1 MG, THIAMINE HCL 100 MG in SODIUM CHLORIDE 0.9% 1... IV SCH (15:05)
[2019-10-21 16:21] VITALS: BP 153/90
[2019-10-21] MEDS ORDERED: GUAIFENESIN-DM 200/20 MG 10 ML PO PRN ×2 (17:45→23:45)
--- NOTE | 2019-10-21 19:50 | NUR ---
MD DR LIZARRAGA IN TO SEE PT. NEW ORDERS GIVEN, PLEASE REFER TO CPOE.
[2019-10-21 20:00] VITALS: BP 144/82
[2019-10-21] MEDS: ZOLPIDEM TARTRATE 5 MG TAB PO PRN (21:46)
--- NOTE | 2019-10-21 21:46 | NUR ---
MEDS SHIFT ASSESSMENT DONE, PLEASE REFER TO CHART. DUE MEDS ADMINISTERED, TOLERATED WELL. KEPT RESTED AND COMFORTABLE. CALL LIGHT WITHIN REACH. WILL MONITOR CLOSELY. Addendum: 10/21/19 at 2351 by NEVILLE TESFAYE RN RN Amended: Links added.
[2019-10-21 23:55] VITALS: BP 145/92
--- NOTE | 2019-10-22 02:00 | NUR ---
MEDS PT IS AWAKE AND COUGHING. PT CLAIMS HE COULD NOT SUSTAIN SLEEP AT THIS TIME. DUE IV ANTIBIOTICS GIVEN. COUGH SYRUP ADMINISTERED. KEPT COMFORTABLE IN BED WITH HOB ELEVATED. CALL LIGHT WITHIN REACH. WILL MONITOR PT.
[2019-10-22] MEDS: AZITHROMYCIN 500MG+NS 250ML 250 ML IV SCH (02:02)
[2019-10-22] MEDS: CEFTRIAXONE SODIUM 1 GM IVP SCH (02:02)
[2019-10-22] MEDS: SODIUM CHLORIDE 0.9% 1000ML 1,000 ML IV SCH ×2 (02:02→04:51)
[2019-10-22 04:00] VITALS: BP 144/85
--- NOTE | 2019-10-22 04:51 | NUR ---
ERIBERTO PT JUST WENT TO THE RESTROOM BY HIMSELF, ABLE TO AMBULATE WITHOUT ASSIST. PT CLAIMS THAT HE HAS AN UPSET STOMACH AND HAD A BM. VERBALIZES INABILITY TO SUSTAIN SLEEP DUE TO BEING DISTURBED CONSTANTLY. KEPT RESTED IN BED. NEW BAG OF ADITHYA WEI. FOR MORE CARE.
[2019-10-22 05:17] LABS: BASOPHILS % (AUTO) 0.4 % (0.0-5.0); EOSINOPHILS % (AUTO) 4.8 % (0.0-8.0); HEMATOCRIT 42.2 % (42-54); MEAN CORPUSCULAR HEMOGLOBIN 31.5 pg (27.0-33.0); MEAN CORPUSCULAR HGB CONC 34.6 g/dL (32.0-36.0); MEAN CORPUSCULAR VOLUME 90.9 fL (79-99); MONOCYTES % (AUTO) 8.4 % (3.0-13.0); NEUTROPHILS % (AUTO) 63.2 % (40.0-77.0); PLATELET COUNT (AUTO) 249 K/uL (130-400); RED BLOOD CELL COUNT(AUTO) 4.64 MIL/uL (4.50-6.20); WHITE BLOOD COUNT (AUTO) 8.1 K/uL (4.8-10.8)
[2019-10-22 05:49] LABS: ALBUMIN 3.2 g/dL (3.5-5.0); BILIRUBIN,TOTAL 0.3 mg/dL (0.2-1.0); CREATININE 0.8 mg/dL (0.5-1.5); MAGNESIUM 2.2 mg/dL (1.80-2.40); PHOSPHORUS 3.7 mg/dL (2.5-4.9); POTASSIUM 4.3 mmol/L (3.5-5.1); TOTAL PROTEIN, SERUM 6.8 g/dL (6.0-8.3)
[2019-10-22] MEDS: ONDANSETRON HCL 4 MG/2 ML VIAL IV PRN (06:55)
[2019-10-22 08:26] VITALS: BP 145/79
--- NOTE | 2019-10-22 08:30 | NUR ---
AM ASSESSMENT PT SITTING IN CHAIR, WATCHING TV. A/O X 3. NO SOB. NO DISTRESS NOTED. RESTLESS. PT STATES HE WILL BE LEAVING HOME TODAY AROUND 10 AM. PER PT, PLANS TO DC HOME TODAY ANYWAY. EXPLAINED TO PT HE WOULD BE LEAVING HOME AMA IF MD HAS NOT YET GIVEN DC ORDER. LEAVING HOME AMA FURTHER EXPLAINED TO PT. QUESTIONS REGARDING AMA ANSWERED. PT INSISTS HE WILL BE LEAVING HOME AMA SINCE THE PLAN WAS FOR MD TO DC HOME TODAY. MD TO BE NOTIFIED. TELE: SR. DENIES N/V AND/OR DIARRHEA, UP AD KEIRY. AGREES TO TAKING AM MEDS. INSTRUCTED TO CALL FOR ASSISTANCE. CALL SHAHEEN W/IN REACH.
[2019-10-22] MEDS: FOLIC ACID 1 MG TABLET PO SCH (08:34)
[2019-10-22] MEDS: LISINOPRIL 10 MG TABLET PO SCH (08:35)
[2019-10-22] MEDS: THIAMINE HCL 100 MG/ML 2ML VIAL IM SCH (08:35)
[2019-10-22] MEDS: ASPIRIN 81 MG EC TAB PO SCH (08:35)
[2019-10-22] MEDS: MULTIVITAMIN TABLET PO SCH (08:35)
[2019-10-22] MEDS: ENOXAPARIN SODIUM 40 MG/0.4 ML SYRINGE SQ SCH (08:36)
--- NOTE | 2019-10-22 08:40 | NUR ---
CARDIOLOGY VISIT Robert AMES IN TO SEE PT. PT STATING HE WILL BE LEAVING HOME AMA TODAY.
--- NOTE | 2019-10-22 08:48 | NUR ---
DISCHARGE IV DC'D @ THIS TIME. PT ALREADY CHANGING INTO CLOTHES FROM HOME. TELE THAO REMOVED BY PT.
[2019-10-22] MEDS ORDERED: FAMOTIDINE 20MG TAB 20 MG TAB PO SCH (09:00)
[2019-10-22] MEDS ORDERED: CEFTRIAXONE SODIUM 1 GM IVP SCH (09:00)
--- NOTE | 2019-10-22 09:04 | NUR ---
DISCHARGE PT STATES HE IS READY TO LEAVE. ONCE AGAIN EXPLAINED AMA DISCHARGE TO PT. AMA FORM EXPLAINED TO PT. PT AWARE HOSPITAL NOR MD RESPONSIBLE IF SOMETHING WERE TO HAPPEN TO HIM UPON LEAVING HOSPITAL AGAINST MEDICAL ADVICE. STATES UNDERSTANDING. AMA FORM SIGNED BY PT. TELE THAO REMOVED EARLIER BY PT.
--- NOTE | 2019-10-22 09:08 | NUR ---
DISCHARGE PT AMBULATED TO ER ENTRANCE, ACCOMPANIED BY Robert GERONIMO PCP.
== END 2019-10-22 09:10 | disposition left against medical advice (07) | DRG 194 ==
LOC: EDH 21:28 → EDHIP 10-19 02:38 → 2DH 10-19 05:39 → 4CH 10-19 23:29
PROVIDERS: ADMIT Hospitalist; ATTEND Hospitalist
DX: J18.1 Lobar pneumonia, unspecified organism (principal); N17.9 Acute kidney failure, unspecified; F10.239 Alcohol dependence with withdrawal, unspecified; M62.82 Rhabdomyolysis; I24.8 Other forms of acute ischemic heart disease; E87.1 Hypo-osmolality and hyponatremia; E87.2 Acidosis; J98.11 Atelectasis; Z68.41 Body mass index [BMI] 40.0-44.9, adult; Y90.1 Blood alcohol level of 20-39 mg/100 ml; F14.10 Cocaine abuse, uncomplicated; E66.01 Morbid (severe) obesity due to excess calories; E78.5 Hyperlipidemia, unspecified; F17.200 Nicotine dependence, unspecified, uncomplicated; I10 Essential (primary) hypertension; I44.0 Atrioventricular block, first degree; F41.9 Anxiety disorder, unspecified; Z20.828 Contact with and (suspected) exposure to other viral communicable diseases; I44.5 Left posterior fascicular block; Z53.29 Procedure and treatment not carried out because of patient's decision for other reasons
CPT/HCPCS: 36415; 36600; 71045; 71275; 80048; 80053; 80061; 80076; 80305; 81001; 82140; 82550; 82728; 82803; 83605; 83615; 83735; 83874; 83880; 84100; 84145; 84484; 85025; 85378; 85610; 85730; 86140; 87040; 87633; 87635; 93005; 93306; 93356; 94640; G0378; G0480; J0456; J0696; J1650; J1956; J2060; J2405; J3411; J3490; J7030; Q9967

== ENCOUNTER 2019-10-22 19:19 | Emergency (ER) | payer OTHER ==
[2019-10-22] MEDS ORDERED: LORAZEPAM 2 MG/ML 1 ML VIAL ONE ×2 (19:21→22:09)
[2019-10-22 19:45] LABS: BASOPHILS % (AUTO) 0.4 % (0.0-5.0); EOSINOPHILS % (AUTO) 0.9 % (0.0-8.0); HEMATOCRIT 41.3 % (42-54); LYMPHOCYTES % (AUTO) 23.5 % (21.0-51.0); MEAN CORPUSCULAR HEMOGLOBIN 30.9 pg (27.0-33.0); MEAN CORPUSCULAR HGB CONC 34.4 g/dL (32.0-36.0); MONOCYTES % (AUTO) 7.1 % (3.0-13.0); NEUTROPHILS % (AUTO) 67.7 % (40.0-77.0); PLATELET COUNT (AUTO) 293 K/uL (130-400); RED BLOOD CELL COUNT(AUTO) 4.59 MIL/uL (4.50-6.20); RED CELL DISTRIBUTION WIDTH 13.2 % (11.0-15.5); WHITE BLOOD COUNT (AUTO) 8.2 K/uL (4.8-10.8)
[2019-10-22 20:05] LABS: CARBON DIOXIDE 24 mmol/L (21-32); CHLORIDE 97 mmol/L (101-111); CREATININE 1.4 mg/dL (0.5-1.5); GLOMERULAR FILTR. RATE CALC 54 mL/min (>60); GLUCOSE,RANDOM 100 mg/dL (70-105); POTASSIUM 3.9 mmol/L (3.5-5.1); SODIUM SERUM 132 mmol/L (136-145); UREA NITROGEN, BLOOD 8 mg/dL (7-18)
[2019-10-22 20:09] LABS: ALANINE AMINOTRANSFERASE 65 U/L (12-78); ALBUMIN 3.5 g/dL (3.5-5.0); ASPARTATE AMINOTRANSFERASE 209 U/L (10-37); BILIRUBIN,TOTAL 0.2 mg/dL (0.2-1.0); TOTAL PROTEIN, SERUM 7.2 g/dL (6.0-8.3)
[2019-10-22 20:30] LABS: ACETAMINOPHEN < 1 mcg/mL (10-29)
[2019-10-22 20:31] LABS: ALCOHOL, BLOOD 237 mg/dL (0-10)
[2019-10-22] MEDS ORDERED: ZIPRASIDONE MESYLATE 20 MG/VIAL IM ONE (21:43)
[2019-10-22 22:15] LABS: APPEARANCE,URINE Clear (CLEAR); BILIRUBIN,URINE Negative (NEGATIVE); COLOR,URINE Yellow (YELLOW); GLUCOSE, URINE (UA) Negative (NEGATIVE); KETONES,URINE Negative (NEGATIVE); LEUKOCYTE ESTERASE ,URINE Trace (NEGATIVE); NITRATE,URINE Negative (NEGATIVE); OCCULT BLOOD,URINE Moderate (NEGATIVE); PROTEIN,URINE Negative (NEGATIVE); UROBILINOGEN,URINE 0.2 mg/dL (0.2-1.0)
[2019-10-22 22:21] LABS: AMPHET/METH SCREEN,URINE NEGATIVE (NEGATIVE); BARBITURATE SCREEN, URINE NEGATIVE (NEGATIVE); BENZODIAZEPINES SCREEN,URINE POSITIVE (NEGATIVE); CANNABINOID SCREEN,URINE NEGATIVE (NEGATIVE); COCAINE SCREEN,URINE POSITIVE (NEGATIVE); OPIATE SCREEN,URINE NEGATIVE (NEGATIVE); PHENCYCLIDINE SCREEN,URINE NEGATIVE (NEGATIVE)
[2019-10-22 22:51] LABS: BACTERIA,URINE Rare /HPF (None Seen); RBC,URINE 0-1 /HPF (0-1); SQUAMOUS EPITHELIAL CELL,UR 0-2 /HPF (0-2); WBC,URINE 0-1 /HPF (0-1)
== END 2019-10-23 07:55 | disposition left against medical advice (07) ==
LOC: EDH 19:19
DX: R45.6 Violent behavior (principal); E78.5 Hyperlipidemia, unspecified; I10 Essential (primary) hypertension
CPT/HCPCS: 36415 ×2; 80053; 80305; 81001; 82550; 85025; 93005; 96372; 96374; 96376; 99284; G0480 ×3; G0481; J2060 ×2; J3486